=== PATIENT | female | born 1965 | race American Indian/Alaskan Native ===

== ENCOUNTER 2017-07-13 22:16 | Emergency (ER) | payer SELFPAY ==
[2017-07-13 22:35] VITALS: BP 174/92
--- NOTE | 2017-07-13 23:01 | Cat Scan Report ---
FINAL REPORT PROCEDURE: CT HEAD/BRAIN WO CON TECHNIQUE: Computerized tomography of the head was performed without contrast material. HISTORY: headache COMPARISON: No prior studies are available for comparison. FINDINGS: Skull and scalp: Normal. Paranasal sinuses: Normal. Ventricles and subarachnoid spaces: Normal. Cerebrum: No evidence of hemorrhage, acute infarction or mass . Cerebellum and brainstem: No evidence of hemorrhage, acute infarction or mass. Vasculature: Normal. Comments: None. IMPRESSION: Normal Examination
--- NOTE | 2017-07-13 23:51 | XRay Report ---
FINAL REPORT EXAM: XR CXR CLINICAL INDICATIONS: SOB FINDINGS: Frontal and lateral views of the chest were acquired. The heart is normal in size. The lungs appear clear. The pleura and mediastinum are within normal limits. IMPRESSION: NO ACTIVE DISEASE IN THE CHEST
[2017-07-14 00:07] LABS: HCG Qualitative,Urine Negative (Negative)
[2017-07-14 00:17] LABS: Bacteria,Urine 1+ /HPF (Negative); Bilirubin,Urine NEG (Negative); Blood,Urine LG (Negative); Calcium Oxalate Crystals,Urine 1+; Color,Urine Colorless (Yellow); Nitrite,Urine NEG (Negative); Protein,Urine <15 mg/dL mg/dL (Negative); Urobilinogen,Urine < 2.0 mg/dL (<2.0)
[2017-07-14 00:43] LABS: Basophils # (Auto) 0.1 K/mm3 (0.0-0.1); Basophils % (Auto) 1.2 % (0.0-1.8); Eosinophils % (Auto) 0.4 % (0.0-4.3); Hematocrit 22.1 % (30.3-42.9); Hemoglobin 6.4 gm/dl (10.1-14.3); Lymphocytes # (Auto) 1.1 K/mm3 (1.2-5.4); Lymphocytes % (Auto) 13.5 % (13.4-35.0); Mean Corpuscular HGB Conc 29 % (30-34); Monocytes # (Auto) 0.5 K/mm3 (0.0-0.8); Monocytes % (Auto) 5.8 % (0.0-7.3); Platelet Count 310 K/mm3 (140-440); Red Blood Count 3.73 M/mm3 (3.65-5.03)
[2017-07-14 00:53] LABS: Mean Corpuscular Hemoglobin 17 pg (28-32); Mean Corpuscular Volume 59 fl (79-97); Red Cell Distribution Width 21.1 % (13.2-15.2)
[2017-07-14 00:56] LABS: BUN/Creatinine Ratio 17; Blood Urea Nitrogen 12 mg/dL (7-17); Hemolysis Index 3
[2017-07-14 02:39] LABS: Calcium 8.8 mg/dL (8.4-10.2)
== END 2017-07-14 03:41 | disposition left against medical advice (07) ==
LOC: ED 22:16
DX: R51 Headache (principal); R06.02 Shortness of breath; Z53.21 Procedure and treatment not carried out due to patient leaving prior to being seen by health care provider
CPT/HCPCS: 36415; 70450; 71046; 80048; 81001; 81025; 84484; 85025; 93005; 93010

== ENCOUNTER 2020-08-25 19:15 | Emergency (ER) | payer OTHER ==
[2020-08-25] MEDS ORDERED: ASPIRIN 325 MG TAB PO ONE (19:34)
[2020-08-25 19:53] LABS: Basophils # (Auto) 0.1 K/mm3 (0.0-0.1); Basophils % (Auto) 1.1 % (0.0-1.8); Eosinophils # (Auto) 0.1 K/mm3 (0.0-0.4); Eosinophils % (Auto) 1.5 % (0.0-4.3); Hematocrit 37.8 % (30.3-42.9); Hemoglobin 12.9 gm/dl (10.1-14.3); Lymphocytes # (Auto) 2.3 K/mm3 (1.2-5.4); Lymphocytes % (Auto) 37.4 % (13.4-35.0); Mean Corpuscular HGB Conc 34 % (30-34); Mean Corpuscular Volume 87 fl (79-97); Monocytes # (Auto) 0.6 K/mm3 (0.0-0.8); Monocytes % (Auto) 10.2 % (0.0-7.3); Platelet Count 353 K/mm3 (140-440); Red Blood Count 4.33 M/mm3 (3.65-5.03); Red Cell Distribution Width 15.4 % (13.2-15.2)
[2020-08-25 20:06] LABS: Blood Urea Nitrogen 13 mg/dL (7-17); Hemolysis Index 4
[2020-08-25 20:08] LABS: BUN/Creatinine Ratio 19
--- NOTE | 2020-08-25 20:17 | Event Note ---
ED Screening Note Date of service: 08/25/20 Time: 20:13 ED Screening Note: 55-year-old -[place] female presents to the emergency room complaining of right upper chest pain x2 days. She also reports that she feels jittery. She has a past medical history of hypertension and states she is taking lisinopril 20 mg over 12.5 of hydrochlorothiazide. Patient states she took 2 aspirin today prior to arrival. Patient points she had nausea earlier no vomiting. She did have some indigestion. No history of AK or stroke. Has not seen a doctor in over a year and a half. This initial assessment/diagnostic orders/clinical plan/treatment(s) is/are subject to change based on patients health status, clinical progression and re- assessment by fellow clinical providers in the ED. Further treatment and workup at subsequent clinical providers discretion. Patient/guardian urged not to elope from the ED as their condition may be serious if not clinically assessed and managed. Initial orders include:
--- NOTE | 2020-08-25 20:40 | XRay Report ---
CHEST 2 VIEWS 2005 INDICATION / CLINICAL INFORMATION: Right upper chest pain for 2 days COMPARISON: 07/13/2017 FINDINGS: SUPPORT DEVICES: None. HEART / MEDIASTINUM: No significant abnormality. LUNGS / PLEURA: No significant pulmonary or pleural abnormality. No pneumothorax. ADDITIONAL FINDINGS: No significant additional findings. IMPRESSION: No significant acute abnormality Signer Name: Brown Paredes MD Signed: 08/25/2020 8:36 PM Workstation Name: [id number]
--- NOTE | 2020-08-25 21:06 | Emergency Department Report ---
ED Chest Pain HPI - General Chief Complaint: Chest Pain Stated Complaint: CHEST PAIN PUI?: No Time Seen by Provider: 08/25/20 21:01 Source: patient Mode of arrival: Ambulatory Limitations: No Limitations - History of Present Illness Initial Comments: Patient is a 55-year-old female who presents emergency room with complaints of right upper chest pain. Patient states her chest pain going on for 2 days. Patient states that it is nonradiating. Patient states it is at her right clavicle. Patient states the pain is worse with movement and better with rest. Patient states she is feeling jittery because of her high blood pressure. Patient states she is currently taking lisinopril 20/12.5. Patient states she is mostly taking carvedilol 25 mg twice a day but she has not. Patient states she did not like the carvedilol the way it made her feel. Patient states she is having nausea at times. Patient denies vomiting. Patient denies shortness of breath. Patient denies fever and chills. Patient denies cough. Patient states she does not have a primary care. Patient denies recent travel. Patient denies recent international travel. Patient denies exposure to the novel coronavirus. Patient denies sick contacts. Patient denies fever and chills. Patient denies cough. Patient denies diarrhea. Patient denies coming in contact with anybody with symptoms of the novel coronavirus. MD Complaint: chest pain -: Sudden Onset: during rest Pain Location: right chest Pain Radiation: none Severity scale (0 -10): 7 Quality: sharp Consistency: constant Improves With: rest Worsens With: palpation, movement re: nausea. denies: vomting, diaphoresis, dyspnea, sense of impending doom Other Symptoms: denies: cough, fever, syncope, rash, acid taste in mouth, leg swelling, palpitations, burping Treatments Prior to Arrival: aspirin Aspirin use within the Past 7 Days: (1) Yes - Related Data Previous Rx's Medication Instructions Recorded Last Taken Type Ibuprofen [Motrin] 800 mg PO Q8HR PRN #21 tablet 05/08/16 Unknown Rx methOCARBAMOL [Robaxin TAB] 500 mg PO BID #20 tab 05/08/16 Unknown Rx traMADoL [Ultram 50 MG tab] 50 mg PO Q4HR PRN #20 tablet 05/08/16 Unknown Rx Metoprolol Xl [Metoprolol 50 mg PO QDAY 30 Days #30 tablet 08/25/20 Unknown Rx SUCCINATE ER TAB] Allergies Allergy/AdvReac Type Severity Reaction Status Date / Time No Known Allergies Allergy Verified 08/30/13 22:09 Heart Score - HEART Score History: Slightly suspicious EKG: Normal Age: 45-65 Risk factors: No known risk factors Troponin: < normal limit HEART Score: 1 ED Review of Systems ROS: Stated complaint: CHEST PAIN Other details as noted in HPI Constitutional: denies: chills, fever Eyes: denies: eye pain, eye discharge, vision change ENT: denies: ear pain, throat pain Respiratory: denies: cough, shortness of breath, wheezing Cardiovascular: as per HPI, chest pain. denies: palpitations Endocrine: no symptoms reported Gastrointestinal: nausea. denies: abdominal pain, vomiting, diarrhea Genitourinary: denies: urgency, dysuria, discharge Musculoskeletal: denies: back pain, joint swelling, arthralgia Skin: denies: rash, lesions Neurological: denies: headache, weakness, paresthesias Psychiatric: anxiety. denies: depression Hematological/Lymphatic: denies: easy bleeding, easy bruising ED Past Medical Hx - Past Medical History Previous Medical History?: Yes Hx Hypertension: Yes - Surgical History Past Surgical History?: Yes Additional Surgical History: Abd. hernia @ age 6 - Family History Family history: no significant - Social History Smoking Status: Never Smoker Substance Use Type: None - Medications Home Medications: Home Medications Medication Instructions Recorded Confirmed Last Taken Type Ibuprofen [Motrin] 800 mg PO Q8HR PRN #21 tablet 05/08/16 Unknown Rx methOCARBAMOL [Robaxin TAB] 500 mg PO BID #20 tab 05/08/16 Unknown Rx traMADoL [Ultram 50 MG tab] 50 mg PO Q4HR PRN #20 tablet 05/08/16 Unknown Rx Metoprolol Xl [Metoprolol 50 mg PO QDAY 30 Days #30 tablet 08/25/20 Unknown Rx SUCCINATE ER TAB] ED Physical Exam - General Limitations: No Limitations General appearance: alert, in no apparent distress - Head Head exam: Present: atraumatic, normocephalic - Eye Eye exam: Present: normal appearance - ENT ENT exam: Present: mucous membranes moist - Neck Neck exam: Present: normal inspection - Respiratory Respiratory exam: Present: normal lung sounds bilaterally, chest wall tenderness (Right upper chest tenderness to palpation. Palpation of the right upper chest reproduces symptoms.). Absent: respiratory distress - Cardiovascular Cardiovascular Exam: Present: regular rate, normal rhythm. Absent: systolic murmur, diastolic murmur, rubs, gallop - GI/Abdominal GI/Abdominal exam: Present: soft, normal bowel sounds - Extremities Exam Extremities exam: Present: normal inspection - Back Exam Back exam: Present: normal inspection - Neurological Exam Neurological exam: Present: alert, oriented X3 - Psychiatric Psychiatric exam: Present: normal affect, normal mood - Skin Skin exam: Present: warm, dry, intact, normal color. Absent: rash ED Course Vital Signs 08/25/20 08/25/20 08/25/20 19:29 20:43 21:53 Temperature 98.0 F 98.1 F Pulse Rate 96 H 95 H 83 Respiratory 18 19 Rate Blood Pressure 183/93 197/88 Blood Pressure 190/98 [Right] O2 Sat by Pulse 100 99 Oximetry 08/25/20 08/25/20 22:18 23:11 Temperature 98 F Pulse Rate 76 68 Respiratory 19 19 Rate Blood Pressure Blood Pressure 177/87 167/81 [Right] O2 Sat by Pulse 99 99 Oximetry - Reevaluation(s) Reevaluation #1: Patient's blood pressure is significantly elevated. Patient was given 50 mg of metoprolol XL. 08/25/20 21:14 Reevaluation #2: Patient's blood pressure is better. Patient states she is feeling much better. Patient's anxiety has resolved. Patient states her chest pain is better. I discussed all results and clinical findings with patient. I discussed plan of care with patient. Patient agrees with plan of care. Patient is stable for discharge. Patient will be discharged home. Patient given discharge instructions. Patient voiced understanding of discharge instructions. Patient is in full fax over to her local video game technician for further evaluation treatment and risk stratification of her chest pain. 08/25/20 22:29 MARGOTH score - Margoth Score Age > 65: (0) No Aspirin use within the Past 7 Days: (1) Yes 3 or more CAD Risk Factors: (0) No 2 or more Angina events in past 24 hrs: (0) No Known CAD with more than 50% Stenosis: (0) No Elevated Cardiac Markers: (0) No ST Deviation Greater than 0.5mm: (0) No MARGOTH Score: 1 ED Medical Decision Making - Lab Data Result diagrams: 08/25/20 19:40 08/25/20 19:40 - EKG Data -: EKG Interpreted by Me EKG shows normal: sinus rhythm, axis, intervals, QRS complexes, ST-T waves Rate: normal - Radiology Data Radiology results: report reviewed, image reviewed interpreted by me: Chest x-ray: No pneumonia, no pneumothorax, no foreign body, no osseous findings, no acute findings CHEST 2 VIEWS 2005 INDICATION / CLINICAL INFORMATION: Right upper chest pain for 2 days COMPARISON: 07/13/2017 FINDINGS: SUPPORT DEVICES: None. HEART / MEDIASTINUM: No significant abnormality. LUNGS / PLEURA: No significant pulmonary or pleural abnormality. No pneumothorax. ADDITIONAL FINDINGS: No significant additional findings. IMPRESSION: No significant acute abnormality - Medical Decision Making Patient is a 55-year-old female who presents emergency room with upper right chest pain, diabetes and hypertension. Patient primary care and and doesn't have a physician managing her blood pressure. Patient came in for chest pain has been going on for 2 days. Patient states she been anxious for 4 days. Pat ient had labs done which were essentially unremarkable. Patient's cardiac enzymes were negative. Patient's chest x-ray was negative for acute findings. Patient's EKG was negative for acute finding and a normal ST and no ST segment elevation noted. Patient EKG and chest x-ray were reviewed by me. Patient blood pressure found to be elevated. Patient given 50 mg metoprolol XL patient's anxiety decreased and patient blood pressure improved. Patient responded well to treatment. Patient is stable for discharge. Patient will be discharged home. Patient's chest pain is low risk and most likely musculoskeletal and anxiety. Patient is stable to be worked up as an outpatient. Patient information was faxed over to our local cardiology group for further evaluation and treatment and risk ratification of her chest pain and management of her blood pressure. - Differential Diagnosis Right-sided chest pain, muscular pain, anxiety, hypertension, Critical care attestation.: If time is entered above; I have spent that time in minutes in the direct care of this critically ill patient, excluding procedure time. ED Disposition Clinical Impression: Right-sided chest pain, Anxiety Hypertension Qualifiers: Hypertension type: essential hypertension Qualified Code(s): I10 - Essential (primary) hypertension Chest pain Qualifiers: Chest pain type: unspecified Qualified Code(s): R07.9 - Chest pain, unspecified Disposition: TO HOME OR SELFCARE Is pt being admited?: No Does the pt Need Aspirin: No Condition: Stable Instructions: How to Take Your Blood Pressure, [id number], Chest Wall Pain, [id number], Nonspecific Chest Pain, Adult, [id number], Hypertension, Adult, [id number], Preventing Hypertension, Managing Your Hypertension, Chest Pain (ED), Hypertension (ED) Additional Instructions: Patient to follow-up with primary care in 2 to 3 days. Patient to follow-up with video game technician in 2 to 3 days. Patient to rest. Patient to increase water. Patient to avoid strenuous exercise or heavy lifting until cleared by primary care and video game technician. Patient to take Tylenol or ibuprofen as needed for pain. Patient to take meds as directed. Patient to return to the ER if condition worsens, changes or new symptoms arise. Patient to monitor blood pressure at home. Patient to keep a blood pressure log. Patient to take blood pressure log to her follow-up appointments. Patient to eat a low-salt, heart healthy diet. Patient to take an 81 mg aspirin daily. Prescriptions: Metoprolol Xl [Metoprolol SUCCINATE ER TAB] 50 mg PO QDAY 30 Days #30 tablet Referrals: JOE NEAL MD [Primary Care Provider] - 2-3 Days NAM ONTIVEROS MD [Staff Physician] - 2-3 Days Time of Disposition: 22:36
[2020-08-25] MEDS ORDERED: METOPROLOL SUCCINATE XL 50 MG TAB PO ONE (21:12)
[2020-08-25 23:11] VITALS: BP 167/81
== END 2020-08-25 23:13 | disposition home or self-care (01) ==
LOC: ED 19:15
DX: R07.89 Other chest pain (principal); F41.9 Anxiety disorder, unspecified; I10 Essential (primary) hypertension; Z98.890 Other specified postprocedural states; Z79.1 Long term (current) use of non-steroidal anti-inflammatories (NSAID); Z79.899 Other long term (current) drug therapy
CPT/HCPCS: 36415; 71046; 80048; 84484; 85025; 93005